=== PATIENT | female | born 1940 | race Caucasian/White ===

== ENCOUNTER 2021-02-10 20:42 | Inpatient (IN) | payer MEDICARE, BC ==
[~2021-02-10] VITALS: Ht 152.4 cm; Wt 54.4 kg
--- NOTE | 2021-02-10 20:59 | NUR ---
PT BIBRA 89 C/O RT FLANK PAIN AND NAUSEA, AND STATED "i DONT FEEL WELL". PT WAS ADMITTED 2 DAYS PRIOR FOR HTN SYSTOLIC IN 200S. PT BREATHING EVEN AND UNALBORED PLACED ON A MONITOR AND PULSE OX. ALL V/S STABLE AT THIS TIME. WAS AT BEDSIDE FOR EVAL.
[2021-02-10 21:48] LABS: BASOPHILS % (AUTO) 0.7 % (0.0-2.0); EOSINOPHILS % (AUTO) 1.5 % (0.0-6.0); HEMATOCRIT 35 % (33-45); HEMOGLOBIN 11.5 g/dL (11.5-14.8); LYMPHOCYTES # (AUTO) 0.6 K/uL (0.8-4.8); LYMPHOCYTES % (AUTO) 9.2 % (20.0-44.0); MEAN CORPUSCULAR HGB CONC 33 g/dl (31.0-36.0); MEAN CORPUSCULAR VOLUME 92 fL (82-100); MONOCYTES # (AUTO) 0.8 K/uL (0.1-1.30); MONOCYTES % (AUTO) 10.9 % (2.0-12.0); NEUTROPHILS # (AUTO) 5.5 K/uL (1.8-8.9); NEUTROPHILS % (AUTO) 77.7 % (43.0-81.0); PLATELET COUNT (AUTO) 260 K/uL (150-450); RED BLOOD CELL COUNT(AUTO) 3.82 MIL/uL (4.0-5.2)
[2021-02-10 22:01] LABS: CALCIUM, SERUM 9.2 mg/dL (8.5-10.1); CARBON DIOXIDE 30 mmol/L (21-32); CHLORIDE 98 mmol/L (98-107); CREATININE 0.9 mg/dL (0.6-1.3); GLUCOSE 134 mg/dL (74-106); SODIUM SERUM 134 mmol/L (136-145); UREA NITROGEN, BLOOD 18 mg/dL (7-18)
--- NOTE | 2021-02-10 22:27 | NUR ---
URINE SENT TO LAB
[2021-02-10] MEDS ORDERED: CEFTRIAXONE 1GM BAG (ER ONLY) 1 GM/50 ML PIGGYBACK IV ONE (23:00)
[2021-02-10] MEDS ORDERED: ONDANSETRON HCL/PF 4 MG/2 ML VIAL IV ONE (23:00)
[2021-02-10] MEDS ORDERED: AZITHROMYCIN 500 MG in IV D5W 250 ML IV ONE (23:00)
[2021-02-10] MEDS ORDERED: ONDANSETRON HCL/PF 4 MG/2 ML VIAL ONE (23:19)
[2021-02-10] MEDS ORDERED: CEFTRIAXONE 1GM BAG (ER ONLY) 50 ML IV ONE (23:19)
[2021-02-10 23:27] LABS: BILIRUBIN,URINE NEGATIVE (NEGATIVE); COLOR,URINE YELLOW (YELLOW); LEUKOCYTE ESTERASE ,URINE SMALL (NEGATIVE); NITRITE, URINE NEGATIVE (NEGATIVE); PH,URINE 7.5 (5.0-8.0); PROTEIN,URINE NEGATIVE (NEGATIVE); UGLUCOSE NEGATIVE (NEGATIVE); UROBILINOGEN,URINE 0.2 EU/dL (0.2)
[2021-02-10 23:34] LABS: BACTERIA,URINE Few /HPF (None Seen); RBC,URINE 0-2 /HPF (0-2); SQUAMOUS EPITHELIAL CELL,UR Few /HPF (None Seen); WBC,URINE 21-50 /HPF (0-3)
[2021-02-10] MEDS ORDERED: AZITHROMYCIN 500 MG VIAL ONE (23:58)
[2021-02-11] MEDS ORDERED: FUROSEMIDE 20 MG/2 ML VIAL ONE (00:51)
[2021-02-11] MEDS ORDERED: METOPROLOL TARTRATE 50 MG TABLET ONE (00:52)
--- NOTE | 2021-02-11 00:58 | NUR ---
CALLED [facility], REPAIR TECH DR VALDEZ
[2021-02-11] MEDS ORDERED: FUROSEMIDE 20 MG/2 ML VIAL IV ONE (01:00)
[2021-02-11] MEDS ORDERED: METOPROLOL TARTRATE 50 MG TABLET PO ONE (01:00)
[2021-02-11] MEDS ORDERED: Z GUARD REMEDY 2 OZ OINT TP PRN (01:30)
[2021-02-11] MEDS ORDERED: MAG HYDROX/AL HYDROX/SIMETH 30 ML UDC PO PRN (01:30)
[2021-02-11] MEDS ORDERED: ACETAMINOPHEN 325 MG TABLET PO PRN (01:30)
[2021-02-11] MEDS ORDERED: MAGNESIUM HYDROXIDE 30 ML UDC PO PRN (01:30)
[2021-02-11] MEDS ORDERED: ZOLPIDEM TARTRATE 5 MG TABLET PO PRN (01:30)
[2021-02-11] MEDS ORDERED: ONDANSETRON HCL/PF 4 MG/2 ML VIAL IVP PRN (01:30)
[2021-02-11] MEDS ORDERED: METO50TA16 PO (03:33)
[2021-02-11] MEDS ORDERED: FURO-145 PO (03:34)
[2021-02-11] MEDS ORDERED: WARF-58 PO (03:53)
[2021-02-11] MEDS ORDERED: LOSA50TA39 PO (03:56)
[2021-02-11] MEDS ORDERED: HYDR-4076 PO (03:56)
--- NOTE | 2021-02-11 04:29 | NUR ---
REPORT GIVEN TO DAVIDE
--- NOTE | 2021-02-11 04:45 | NUR ---
PT TRANSPORTED TO ROOM 106 ON [facility] [employer] PER [employer] WITHOUT INCIDENT. ALL V/S STABLE AT TIME OF TRANSFER.
[2021-02-11 04:50] VITALS: BP 133/54
--- NOTE | 2021-02-11 04:50 | NUR ---
RN NOTES ADMITTED A 80 Y/O FEMALE FROM ER VIA [facility] A/O X4 ABLE TO MAKE NEEDS KNOWN. SAFELY TRANSFER TO BED FROM [facility]. VITAL SIGNS TAKEN AND RECORDED. SKIN ASSESS DONE. ALL BELONGINGS ACCOUNTED AND CHECK. ALL SAFETY MEASURES IN PLACE AT ALL TIMES, BED ON LOWEST POSITION AND LOCKED. HOB ELEVATED, CALL LIGHT WITHIN REACH. NO SOB NO DISTRESS AT THIS TIME. WILL CONTINUE TO MONITOR.
--- NOTE | 2021-02-11 06:17 | NUR ---
RN NOTES PATIENT REMAINS STABLE AT THIS TIME. NO SOB. PATIENT COMFORTABLE IN BED. ALL SAFETY MEASURES IN PLACE AT ALL TIMES, HOB ELEVATED, BED ON LOWEST POSITION AND LOCKED. CALL LIGHT WITHIN REACH. ALL NEEDS ATTENDED. KEPT CLEAN AND DRY AT ALL TIMES. WILL CONTINUE TO MONITOR
--- NOTE | 2021-02-11 07:43 | NUR ---
RN OPENING NOTE PATIENT RECEIVED IN BED, RESTING. PATIENT ON ROOM AIR WITH NO SIGNS OF LABORED BREATHING AT THIS TIME. RIGHT AC 20G IN PLACE. NO SIGNS OF DISTRESS NOTED AT THIS TIME. BED LOCKED AND IN LOWEST POSITION, CALL LIGHT WITHIN REACH, 3 SIDE RAILS UP. WILL CONTINUE TO MONITOR.
[2021-02-11 08:00] VITALS: BP 109/52
[2021-02-11] MEDS: ASPIRIN 81 MG TAB.CHEW PO SCH ×2 (08:45→08:52)
[2021-02-11 12:00] VITALS: BP 139/68
[2021-02-11] MEDS: CEFTRIAXONE 1 G in IV D5W 50 ML IV SCH (12:26)
[2021-02-11] MEDS: AZITHROMYCIN 500 MG in IV D5W 250 ML IV SCH (13:48)
[2021-02-11 16:00] VITALS: BP 112/60
[2021-02-11] MEDS: METOPROLOL TARTRATE 50 MG TABLET PO SCH (16:16)
--- NOTE | 2021-02-11 18:32 | NUR ---
RN CLOSING NOTE PATIENT REMAINS IN BED, AWAKE, A&OX4. PATIENT ON ROOM AIR WITH NO SIGNS OF LABORED BREATHING AT THIS TIME. RIGHT AC 20G IN PLACE. NO SIGNS OF DISTRESS NOTED AT THIS TIME. ALL NEEDS ATTENDED DURING SHIFT. BED LOCKED AND IN LOWEST POSITION, CALL LIGHT WITHIN REACH, 3 SIDE RAILS UP. WILL ENDORSE TO BOILER ATTENDANT NURSE.
--- NOTE | 2021-02-11 19:50 | NUR ---
RN OPENING NOTES RECEIVED CARE OF PATIENT WHILE SITTING ON CHAIR, AMBULATORY PATIENT, A/OX4, ABLE TO VERBALIZE NEEDS. PATIENT ON ROOM AIR, O2 SAT AT THIS TIME IS 96%, NO SOB NOTED. PATIENT ON TELE MONITOR, SR WITH BI PVC & 1ST DEGREE AV BLOCK, HR 86, NO SIGNIFICANT FINDINGS UPON AUSCULTATION OF THE HEART. RIGHT AC 20G IN PLACE. NO SIGNS OF DISTRESS NOTED AT THIS TIME. ALL SAFETY MEASURES PUT IN PLACE. BED LOCKED AND IN LOWEST POSITION, CALL LIGHT WITHIN REACH, 3 SIDE RAILS UP. WILL CONTINUE TO MONITOR FOR ANY CHANGES IN PATIENT'S CONDITION.
[2021-02-11 20:00] VITALS: BP 140/75
[2021-02-11] MEDS ORDERED: WARFARIN SODIUM 5 MG TABLET PO SCH (21:00)
--- NOTE | 2021-02-11 21:07 | NUR ---
RN NOTES INR IS 3.03, WILL CONTINUE WITH THE SCHEDULED ADMINISTRATION OF WARFARIN 5MG
[2021-02-11] MEDS ORDERED: LOSARTAN POTASSIUM 50 MG TABLET PO SCH (22:00)
[2021-02-12] VITALS: BP 146/70
[2021-02-12 04:00] VITALS: BP 119/66
[2021-02-12 06:38] LABS: BASOPHILS % (AUTO) 0.7 % (0.0-2.0); EOSINOPHILS % (AUTO) 4.2 % (0.0-6.0); HEMATOCRIT 31 % (33-45); HEMOGLOBIN 10.4 g/dL (11.5-14.8); LYMPHOCYTES # (AUTO) 0.8 K/uL (0.8-4.8); LYMPHOCYTES % (AUTO) 14.3 % (20.0-44.0); MEAN CORPUSCULAR HGB CONC 34 g/dl (31.0-36.0); MEAN CORPUSCULAR VOLUME 92 fL (82-100); MONOCYTES # (AUTO) 0.7 K/uL (0.1-1.30); MONOCYTES % (AUTO) 12.5 % (2.0-12.0); NEUTROPHILS # (AUTO) 3.8 K/uL (1.8-8.9); NEUTROPHILS % (AUTO) 68.3 % (43.0-81.0); PLATELET COUNT (AUTO) 231 K/uL (150-450); RED BLOOD CELL COUNT(AUTO) 3.37 MIL/uL (4.0-5.2); WHITE BLOOD COUNT (AUTO) 5.5 K/uL (4.3-11.0)
[2021-02-12 07:20] LABS: CALCIUM, SERUM 8.7 mg/dL (8.5-10.1); CREATININE 0.8 mg/dL (0.6-1.3); MAGNESIUM 2.3 mg/dL (1.8-2.4); PHOSPHORUS 2.8 mg/dL (2.5-4.9); POTASSIUM 4.4 mmol/L (3.5-5.1)
--- NOTE | 2021-02-12 07:23 | NUR ---
RN CLOSING NOTES WILL ENDORSE CARE OF PATIENT TO DAYSHIFT NURSE WHILE PATIENT IS SLEEPING, PATIENT WAKES UP TO NAME, AMBULATORY PATIENT, A/OX4, ABLE TO VERBALIZE NEEDS. PATIENT ON ROOM AIR, O2 SAT AT THIS TIME IS 99%, NO SOB NOTED. PATIENT ON TELE MONITOR, SR AT THIS TIME, HR 75, NO SIGNIFICANT FINDINGS UPON ALL NURSING ASSESSMENTS THROUGHOUT THE SHIFT. RIGHT AC 20G IN PLACE. NO SIGNS OF DISTRESS NOTED AT THIS TIME. ALL SAFETY MEASURES PUT IN PLACE. BED LOCKED AND IN LOWEST POSITION, CALL LIGHT WITHIN REACH, 3 SIDE RAILS UP. WILL ENDORSE TO DAY SHIFT NURSE FOR ELVIS.
--- NOTE | 2021-02-12 07:40 | NUR ---
RN OPENING NOTE PATIENT RECEIVED IN BED, ASLEEP. PATIENT ON ROOM AIR WITH NO SIGNS OF LABORED BREATHING AT THIS TIME. RIGHT AC 20G PIV IN PLACE, PATENT WITH NO SIGNS OF INFILTRATION. BED LOCKED AND IN LOWEST POSITION, CALL LIGHT WITHIN REACH, 2 SIDE RAILS UP. NO SIGNS OF DISTRESS NOTED AT THIS TIME. WILL CONTINUE TO MONITOR.
[2021-02-12 08:00] VITALS: BP 156/73
[2021-02-12] MEDS: ASPIRIN 81 MG TAB.CHEW PO SCH (08:42)
[2021-02-12] MEDS: METOPROLOL TARTRATE 50 MG TABLET PO SCH (08:43)
[2021-02-12] MEDS ORDERED: WARFARIN SODIUM 5 MG TABLET PO SCH ×2 (09:00→17:00)
[2021-02-12] MEDS: CEFTRIAXONE 1 G in IV D5W 50 ML IV SCH (11:16)
[2021-02-12 12:00] VITALS: BP 137/80
[2021-02-12] MEDS: AZITHROMYCIN 500 MG in IV D5W 250 ML IV SCH (12:57)
[2021-02-12] MEDS ORDERED: ASPI-1420 PO (13:11)
--- NOTE | 2021-02-12 15:01 | NUR ---
RN NOTE PATIENT DISCHARGED PER MD ORDER. PATIENT MEDICALLY STABLE AT TIME OF DISCHARGE. PATIENT LEFT THE FACILITY THROUGH PRIVATE CAR WITH HER . ALL LINES REMOVED.
== END 2021-02-12 15:03 | disposition home or self-care (01) | DRG 689 ==
LOC: ER 20:47 → TELE1 02-11 01:46
DX: N39.0 Urinary tract infection, site not specified (principal); I50.31 Acute diastolic (congestive) heart failure; Z95.2 Presence of prosthetic heart valve; I11.0 Hypertensive heart disease with heart failure; I16.0 Hypertensive urgency; E78.5 Hyperlipidemia, unspecified; Z20.822 Contact with and (suspected) exposure to COVID-19; R79.1 Abnormal coagulation profile; Z86.79 Personal history of other diseases of the circulatory system
CPT/HCPCS: 36415; 71045-TC; 80048-TC; 81001; 83735-TC; 83880; 84100-TC; 84484-TC; 85025-TC; 85730-TC; 87081-TC; 87086-TC; C9803; G0378; J0456; J0696; J1940; J2405; J7060; U0003